=== PATIENT | female | born 1950 | race Caucasian/White ===

== ENCOUNTER 2016-10-03 09:45 | Outpatient (RCR) | payer MEDICARE ==
--- NOTE | 2016-09-17 14:26 | PT/OT/ST INITIAL EVALUATION ---
Department of Health and Human Services Form Approved [facility] Care Financing Administration OMB No. [id number] PLAN OF CARE/ASSESSMENT FOR OUTPATIENT REHABILITATION (Complete for Initial Claims Only) 1. PATIENT'S NAME Aline Daniels 2. ACC # [id number] 3. [facility] [id number] 4. PROVIDER NO. [id number] 5. TYPE: PT 6. PRIOR HOSPITALIZATION None 7. PRIMARY DX Right Achilles tendonitis 8. SECONDARY DX Right Achilles pain 9. ONSET DATE 2 months ago 10. REFERRAL DATE 09/10/2016 11. SOC. DATE 09/17/2016 12. TIME OF EVAL 9:00 a.m. 12. REFERRING PHYSICIAN Dr. Bernard Snowden 13. CHARGES/UNITS Evaluation Ultrasound Manual therapy 14. G CODES NA 15. PRIOR LEVEL OF FUNCTION; PERTINENT HISTORY (Prior therapy results, reason for referral.) S: Reason for referral: The patient was referred to physical therapy by Dr. Bernard Snowden with the diagnosis of right heel Achilles tendonitis. Primary Complaint: The patient reports that she has been experiencing pain at her right posterior heel region since the july. Not sure what may have aggravated this. Possibly some shoes she was wearing. The patient notes that she has increased symptoms with shoes that cover her heel or when she performs a great deal of walking. Occupational and social health history: The patient is retired. She exercises routinely at the [employer]. She also enjoys walking and riding her stationary bike. She describes her overall activity level as moderate. Personal health rating: Rates her overall health as good. Pain level: Current pain rating is 2/10. Past medical history: Includes hypertension and hysterectomy and fractured right ankle. Current medications: Include ibuprofen as needed. Patient's Goal: The patient's goal for therapy is to eliminate the pain and heal her Achilles. 16. INITIAL ASSESSMENT/SAFETY PRECAUTIONS/MEDICAL COMPLICATIONS (Level of function at start of care. Be specific, use objective measures, list problems.) O: APPEARANCE, OBSERVATION AND GAIT: The patient is a 65-year-old female. She ambulates into physical therapy wearing flip-flops with gait. The patient demonstrated her right lower extremity externally rotated and walking off the inside of her foot. Limited dorsiflexion with gait at her right foot. The patient does demonstrate moderate swelling and inflammation at the pump-bump region of her right calcaneus Achilles tendon insertion. Tenderness to palpation at that region. JOINT MOBILITY: The patient did demonstrate moderate limitation and joint mobilization at both her right left ankle. No significant asymmetry is noted. SPECIAL TESTS: The patient performed Lower Extremity Functional Index and her score was 57/80. RANGE OF MOTION/FLEXIBILITY: Right ankle dorsiflexion 3 degrees, plantar flexion 44 degrees, inversion 20 degrees, and eversion 10 degrees. Left ankle dorsiflexion 6 degrees, plantar flexion 53 degrees, inversion 20 degrees and eversion 8 degrees. GIRTH MEASUREMENT: Figure-of-8 measurement right ankle 55.8 cm, left 53.4 cm. STRENGTH: Right ankle dorsiflexion and plantar flexion 4+/5 manual muscle test due to pain. Inversion and eversion 5/5 manual muscle test. Left ankle strength was 5/5 manual muscle test. TODAY'S TREATMENT: Treatment included initial evaluation followed by pulsed ultrasound to right Achilles tendon insertion. ASTYM was also included. Gentle joint mobilization and stretching were performed to the patient's right ankle and Achilles. The patient was instructed on a home exercise program. 17. INITIAL POC: (Specify procedures, modalities, short and tech ed/woodshop teacher goals) A: The patient demonstrates right ankle tendonitis and inflammation. PROGNOSIS: The patient will benefit from physical therapy to help manage pain and inflammation and progress with flexibility and strength. SHORT TERM GOALS: 1. The patient to be compliant with home exercise program in 1 week. 2. The patient to demonstrate a 5 degrees improvement in active dorsiflexion at right ankle in 3 weeks. 3. The patient to ambulate with normal gait pattern without asymmetries in 4 weeks. 4. The patient to demonstrate full resistive strength in all directions without pain in 4 weeks. 5. The patient to report that she is able to perform normal daily activities without any increase in pain at her right ankle in 6 weeks. P: The patient will be seen 2 times a week over the next 6 weeks. Treatment to include modalities of manual therapy to decreased pain and inflammation. We will progress the patient with range of motion and flexibility, stabilization and light strengthening activity as tolerated. 18. FREQUENCY 2 times per week 19. DURATION 6 weeks 20. FUNCTIONAL LEVEL (End of claim period) 21. PHYSICIAN SIGNATURE ? ON FILE OR ENTER HERE: 22. DATE: I certify the need for these services furnished under this plan of care and if for partial hospitalization. 23. CERTIFICATION FROM THROUGH FORM [facility]-[id number]
[~2016-10-03 09:45] MED LIST: DOXY100C42 PO; HCT25T; ROSU10TA; SULF1TAB35 PO; [UNRECOGNIZED DRUG - CODE]
== END 2016-10-13 13:06 | disposition home or self-care (01) ==
LOC: PT 09:45
PROVIDERS: ATTEND Family Medicine
DX: M76.61 Achilles tendinitis, right leg (principal); M79.661 Pain in right lower leg
CPT/HCPCS: 97035; 97110; 97140; 97161; G8978; G8979